=== PATIENT | female | born 1950 | race Caucasian/White ===

== ENCOUNTER 2018-11-25 11:16 | Day surgery (SDC) | payer MEDICARE ==
[2018-11-23 12:42] LABS: BASOPHILS % (AUTO) 0.8 % (0-1); EOSINOPHILS # (AUTO) 0.1 X10'3 (0-0.9); EOSINOPHILS % (AUTO) 1.8 % (0-6); HEMOGLOBIN 13.2 g/dl (12.0-16.0); LYMPHOCYTES # (AUTO) 1.8 X10'3 (1.1-4.8); LYMPHOCYTES % (AUTO) 42.6 % (21-51); MEAN CORPUSCULAR HEMOGLOBIN 32.4 PG (27.0-31.0); MEAN CORPUSCULAR HGB CONC 34.8 g/dL (33.0-36.5); MEAN CORPUSCULAR VOLUME 93.1 FL (78-98); MEAN PLATELET VOLUME 7.6 FL (7.4-10.4); MONOCYTES # (AUTO) 0.3 X10'3 (0-0.9); MONOCYTES % (AUTO) 6.3 % (2-12); NEUTROPHILS % (AUTO) 48.5 % (42-75); PLATELET COUNT 282 X10'3 (140-440); RED BLOOD COUNT 4.08 X10'6 (4.20-5.60); RED CELL DISTRIBUTION WIDTH 12.2 % (11.5-14.5); WHITE BLOOD COUNT 4.2 X10'3 (4.5-11.0)
[2018-11-23 12:51] LABS: PARTIAL THROMBOPLASTIN TIME 25 SECONDS (22-32)
[2018-11-23 12:54] LABS: ALANINE AMINOTRANSFERASE 20 U/L (12-78); ALBUMIN 3.8 G/DL (3.4-5.0); ALKALINE PHOSPHATASE 79 IU/L (46-116); ANION GAP 10 (8-16); ASPARTATE AMINO TRANSFERASE 18 U/L (10-37); BILIRUBIN,TOTAL 0.6 MG/DL (0.1-1.0); BLOOD UREA NITROGEN 14 MG/DL (7-18); BUN/CREATININE RATIO 15.9 (6.6-38.0); CHLORIDE 108 MMOL/L (99-107); CREATININE 0.88 MG/DL (0.40-0.90); GLUCOSE 93 MG/DL (70-104); SODIUM 143 MMOL/L (135-145); TOTAL CARBON DIOXIDE 25.4 MMOL/L (24-32); TOTAL PROTEIN 7.7 G/DL (6.4-8.2); eGFR 64 ML/MIN
[~2018-11-25] VITALS: Ht 157.5 cm; Wt 68.1 kg
[2018-11-25] VITALS (11 sets, daily range): BP systolic 112–131; BP diastolic 66–85
[~2018-11-25 11:16] MED LIST: CYCL5TAB11 PO; ESOM40CA49 PO; ESTR0.6261 PO; FENO160T13 PO; GABA-532 PO; TRAZ-251 PO
[2018-11-25] MEDS ORDERED: LORazepam 0.5 MG tablet PO PRN (11:30)
[2018-11-25] MEDS ORDERED: normal saline 1,000 ML IV SCH (11:30)
[2018-11-25] MEDS ORDERED: diphenhydrAMINE 25mg capsule PO PRN (11:30)
[2018-11-25] MEDS ORDERED: nitroGLYCERIN 0.4mg SUBLingual tab SL PRN ×2 (11:30→15:10)
[2018-11-25] MEDS ORDERED: iohexol 350MG/ML 100ml bottle IV ONE (11:59)
[2018-11-25] MEDS ORDERED: fentaNYL/PF 50MCG/1 ML 2ML syringe ONE (11:59)
[2018-11-25] MEDS ORDERED: LIDOcaine 1% (10mg/ml)w/preservative injection 20ml MDV ONE (11:59)
[2018-11-25] MEDS ORDERED: midazolam 2 mg/2 ml injection ONE ×2 (11:59→13:57)
[2018-11-25] MEDS ORDERED: iohexol 350 MG/ML 50ML vial IV ONE (11:59)
[2018-11-25] MEDS ORDERED: GABA-532 PO (12:04)
[2018-11-25] MEDS ORDERED: CYCL-1 PO (12:04)
[2018-11-25] MEDS ORDERED: CARSR60C PO (12:04)
[2018-11-25] MEDS ORDERED: EST1T PO (12:04)
[2018-11-25] MEDS ORDERED: ATOR20TA PO (12:04)
[2018-11-25] MEDS ORDERED: OXAZEpam 15mg capsule PO PRN (15:10)
[2018-11-25] MEDS ORDERED: normal saline 1000ml 1,000 ML IV SCH (15:10)
[2018-11-25] MEDS ORDERED: proCHLORperazine 10 MG/2 ml inj IV PRN (15:10)
[2018-11-25] MEDS ORDERED: ondansetron/PF 4mg/2ml inj IV PRN (15:10)
== END 2018-11-25 19:55 | disposition home or self-care (01) ==
LOC: SSTAY O 11:16
PROVIDERS: ATTEND Internal Medicine Cardiovascular Disease
DX: R94.39 Abnormal result of other cardiovascular function study (principal); I25.10 Atherosclerotic heart disease of native coronary artery without angina pectoris; M19.90 Unspecified osteoarthritis, unspecified site; E78.5 Hyperlipidemia, unspecified; Z87.891 Personal history of nicotine dependence; Z79.899 Other long term (current) drug therapy; Z79.01 Long term (current) use of anticoagulants
CPT/HCPCS: 36415; 71046; 80053; 85025; 85610; 85730; 93458; 99152; 99153; C1769; J1644; J2001; J2250; J3010; J7030; Q0163; Q9967; A4620; A6258; C1760

== ENCOUNTER 2023-12-04 13:52 | Outpatient (CLI) | payer MEDICARE ==
[~2023-12-04 13:52] MED LIST changes: +ATOR20TA PO; +CARSR60C PO; +CYCL-1 PO; -CYCL5TAB11 PO; +EST1T PO; -ESTR0.6261 PO; -FENO160T13 PO
== END 2023-12-04 23:59 | disposition home or self-care (01) ==
LOC: US 13:52
PROVIDERS: ATTEND Student in an Organized Health Care Education/Training Program
DX: N64.4 Mastodynia (principal)
CPT/HCPCS: 76642